=== PATIENT | female | born 1980 | race Caucasian/White ===

== ENCOUNTER 2017-03-21 19:03 | Emergency (ER) | END 2017-03-21 21:15 | disposition home or self-care (01) ==

== ENCOUNTER 2017-04-11 22:14 | Emergency (ER) | END 2017-04-11 23:25 | disposition home or self-care (01) ==

== ENCOUNTER 2017-05-26 17:56 | Emergency (ER) | END 2017-05-26 18:52 | disposition home or self-care (01) ==